=== PATIENT | female | born 1975 | race Caucasian/White ===

== ENCOUNTER 2022-01-05 16:40 | Emergency (ER) | payer OTHER ==
[2022-01-05 19:02] LABS: HEMOGLOBIN 13.2 gm/dl (12.3-15.3); RED BLOOD COUNT 4.38 M/UL (4.00-5.10); WHITE BLOOD COUNT 8.7 K/UL (4.5-11.0)
[2022-01-05 19:20] LABS: BUN/CREATININE RATIO 13 (0-10)
[2022-01-05] MEDS ORDERED: PROTONIX40 MG PO (22:16)
[2022-01-05] MEDS ORDERED: ONDANSETRON ODT4 MG SL (22:16)
== END 2022-01-05 22:51 | disposition home or self-care (01) ==
LOC: ER1 16:40
PROVIDERS: Physician Assistant
DX: R10.13 Epigastric pain (principal); R10.816 Epigastric abdominal tenderness; F17.200 Nicotine dependence, unspecified, uncomplicated; Z88.5 Allergy status to narcotic agent; Z88.0 Allergy status to penicillin; Z88.2 Allergy status to sulfonamides; Z88.1 Allergy status to other antibiotic agents
CPT/HCPCS: 80053; 81001; 83690; 85025; 96374; 96375; 99284; C9113; J1885; Q9967

== ENCOUNTER → 2022-02-09 | Outpatient (CLI) | payer OTHER ==
[~2022-02-09] MED LIST: ONDANSETRON ODT4 MG SL; PROTONIX40 MG PO
== END ==
LOC: EXRD 11:22
DX: M25.551 Pain in right hip (principal)
CPT/HCPCS: 73502

== ENCOUNTER → 2022-03-04 | Outpatient (CLI) | payer OTHER | LOC: MAMO 03-02 08:30 | DX: Z12.31 Encounter for screening mammogram for malignant neoplasm of breast (principal) | CPT/HCPCS: 77063; 77067 ==